=== PATIENT | female | born 1995 | race Caucasian/White ===

== ENCOUNTER 2016-06-27 10:21 | Emergency (ER) | payer OTHER ==
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
[2016-06-27 12:10] VITALS: O2SAT 99
[2016-06-27] MEDS ORDERED: BACIGUENT PACKET TP ONE (12:10)
[2016-06-27] MEDS ORDERED: BACIGUENT PACKET ONE (12:25)
[2016-06-27 12:42] VITALS: BP 126/78; PULSE 88
== END 2016-06-27 12:47 | disposition home or self-care (01) ==
LOC: ED 10:21
DX: S93.502A Unspecified sprain of left great toe, initial encounter (principal); S63.612A Unspecified sprain of right middle finger, initial encounter; V43.52XA Car driver injured in collision with other type car in traffic accident, initial encounter
CPT/HCPCS: 73130; 73630; 99283; A9270-GY

== ENCOUNTER 2016-09-07 13:08 | Emergency (ER) | payer OTHER ==
[2016-09-07] MEDS ORDERED: Adacel Vial IM ONE ×2 (13:38→13:41)
[2016-09-07] MEDS ORDERED: BACIGUENT PACKET TP ONE (13:38)
[2016-09-07] MEDS ORDERED: BACIGUENT PACKET ONE (13:41)
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
[2016-09-07 15:41] VITALS: BP 121/64; PULSE 87
[2016-09-07 15:44] VITALS: O2SAT 96
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
== END 2016-09-07 15:55 | disposition home or self-care (01) ==
LOC: ED 13:08
DX: S80.12XA Contusion of left lower leg, initial encounter (principal); S80.11XA Contusion of right lower leg, initial encounter; S80.812A Abrasion, left lower leg, initial encounter; S80.811A Abrasion, right lower leg, initial encounter; V43.53XA Car driver injured in collision with pick-up truck in traffic accident, initial encounter; H93.12 Tinnitus, left ear
CPT/HCPCS: 73590; 90471; 90715; 99283; A9270-GY

== ENCOUNTER 2023-06-03 05:50 | Day surgery (SDC) | payer BC ==
[2023-06-03] MEDS ORDERED: Lactated Ringers 1,000 ML IV ONE (06:28)
[2023-06-03] MEDS: Lactated Ringers 1,000 ML IV SCH (06:35)
[2023-06-03 06:39] LABS: HCG URINE TEST NEGATIVE (NEGATIVE)
[2023-06-03 06:50] VITALS: RESP 16
[2023-06-03] MEDS ORDERED: DIPRIVAN 200 MG/20 ML IV ONE ×2 (07:46→08:03)
[2023-06-03] MEDS ORDERED: Versed 2 MG/2 ML Injection ONE (07:46)
[2023-06-03 08:56] VITALS: PULSE 73
[2023-06-03 09:06] VITALS: BP 122/75; O2SAT 100
[2023-06-03 09:20] VITALS: TEMP 97.8
--- NOTE | 2023-06-03 11:24 | OP ---
SURGERY DATE/TIME: 06/03/2023 0747 PREOPERATIVE DIAGNOSIS: 1) Abdominal pain. 2) Change in bowel habits. POSTOPERATIVE DIAGNOSES: 1) Mild gastritis. 2) Normal colon. PROCEDURES: 1) Esophagogastroduodenoscopy with cold forceps biopsy gastric antrum. 2) Colonoscopy with cold forceps biopsy random segments of the colon to rule out microscopic colitis. SURGEON: Dr. Chavez. ANESTHESIA: Medications were given by the anesthesia department. HISTORY: The patient is a 27-year-old white female who has been having problems with abdominal pain. She previously had her gallbladder removed two years ago for low ejection fraction and this initially seemed to help. The patient problems since that time with constipation at times and at other times diarrhea. The patient and her mother report no significant stressors other than the fact that she has been recently engaged. The patient was appraised the risks of the procedure including the risk of perforation, phlebitis, untoward reaction to medication, bleeding and missed lesions. The patient verbalized her understanding and desired to have the procedure performed. DESCRIPTION OF PROCEDURE: The patient was given the medications by the anesthesia department. She had continuous pulse oximetry, ECG monitoring and intermittent blood pressure monitoring during the examination. She was placed in the left lateral decubitus position. A bite block was placed. The flexible Olympus gastroscope was used to intubate the oropharynx. A view of the larynx was obtained and was normal. Scope was easily introduced in the esophagus which appeared to be normal throughout its length. The stomach was entered with normal gastric rugal folds and these distended nicely with insufflation of air. The scope was passed along the greater curvature of the stomach to the pylorus which was intubated and found to be essentially normal. The scope is withdrawn towards the stomach. A retroflex view was obtained of the lesser curvature, fundus and cardia regions of the stomach which to be essentially normal. Biopsies were obtained from the gastric antrum to rule out the presence of Helicobacter pylori-type organism and gastritis. The scope was then removed from the patient. Next, a digital rectal examination was performed and revealed normal anal sphincter tone and no masses. The flexible Olympus pediatric colonoscope was used to intubate the rectum. A view of the colon was developed sequentially to the cecum including approximately 20 cm into the terminal ileum. No significant abnormalities were noted. As the scope was withdrawn from the patient, we obtained biopsies from random areas of the colon to rule out underlying possibility of colitis or microscopic colitis. The scope was then removed from the patient who tolerated the procedure well and was sent to OP recovery in good condition. The prep was noted to be good.
== END 2023-06-03 09:18 | disposition home or self-care (01) ==
LOC: SDC 05:50
PROVIDERS: ATTEND Family Medicine
DX: K29.70 Gastritis, unspecified, without bleeding (principal); R10.9 Unspecified abdominal pain; R19.4 Change in bowel habit
CPT/HCPCS: 81025; J2250; J2704

== ENCOUNTER 2024-04-04 21:02 | Emergency (ER) | payer BC ==
[2024-04-04 21:22] VITALS: RESP 18; TEMP 96.9
--- NOTE | 2024-04-04 22:04 | ERPHSYRPT ---
- History of Present Illness Time Seen by Provider: 04/04/24 21:50 Historian: patient Exam Limitations: no limitations Patient Subjective Stated Complaint: "I STARTED VOMITING ON SATURDAY AND THEN DIARRHEA ON SATURDAY. IF TRIED ZOFRAN BUT IT DIDN'T HELP. I CAN'T KEEP ANYTHING DOWN." Triage Nursing Assessment: A&OX3, SKIN PALE, COOL DRY, RESP EVEN UNLABORED, AMBULATED TO ROOM WITHOUT DIFFICULTY Physician History: The patient presents with vomiting and diarrhea. She has been experiencing vomiting and diarrhea since , with symptoms beginning after returning home from work at noon. Initially, she thought it was sinus drainage as she vomited at work. Since then, she has been unable to keep anything down, with the last episode of vomiting occurring around 5 or 6 PM today. No blood is present in her vomit or diarrhea. She describes her abdominal pain as 'kind of sharp' and tender, with the pain sometimes being all over, sometimes down, and sometimes up high. Her eye hurt significantly yesterday, which she associates with the pressure from vomiting. She has not taken her temperature but reports feeling hot and cold intermittently, suggesting possible fever. Timing/Duration: day(s) (3) Activities at Onset: rest Quality: sharpness Abdominal Pain Onset Location: generalized abdomen Pain Radiation: no radiation Severity of Pain-Max: mild Severity of Pain-Current: mild Modifying Factors: Improves With: other (zofran helps when able to keep down) Associated Symptoms: denies symptoms Previous symptoms: no prior history Allergies/Adverse Reactions: propranolol Adverse Reaction (Severe, Verified 06/03/23 06:37) hallucinations Home Medications: Adalimumab [Humira Pen] 40 mg SQ UD 05/31/23 [History] Escitalopram Oxalate 10 mg PO DAILY 05/31/23 [History] Norgestimate-Ethinyl Estradiol [Tri-Estarylla Tablet] 1 each PO DAILY 05/31/23 [History] Pantoprazole 20 mg [Protonix 20MG Tablet] 20 mg PO DAILY 05/31/23 [History] Hx Tetanus, Diphtheria Vaccination/Date Given: Yes Hx Influenza Vaccination/Date Given: No Hx Pneumococcal Vaccination/Date Given: No Immunizations Up to Date: No Travel Risk - International Travel Have you traveled outside of the country in past 3 weeks: No - Emerging Infectious Disease Are you exhibiting symptoms associated with any current EIDs: Yes Symptoms: Diarrhea, Headaches/Body Aches/, Vomitting - Review of Systems All Other Systems: Reviewed and Negative - Past Medical History Pertinent Past Medical History: Yes Neurological History: No Pertinent History ENT History: Glaucoma Cardiac History: Other Respiratory History: No Pertinent History Endocrine Medical History: No Pertinent History Musculoskeletal History: No Pertinent History GI Medical History: No Pertinent History History: No Pertinent History Psycho-Social History: Anxiety Female Reproductive Disorders: No Pertinent History Other Medical History: 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 psoriatic arthritis, RANAUD'S DISEASE - Past Surgical History Past Surgical History: Yes Neuro Surgical History: No Pertinent History Cardiac: Other Gastrointestinal: No Pertinent History Genitourinary: No Pertinent History Musculoskeletal: No Pertinent History Female Surgical History: No Pertinent History Other Surgical History: open heart- age [age]. multiple eye surgeries since . valves in both eyes - Female History Hx Last Menstrual Period: 03/18/24 Hx Now: No - Social History Smoking Status: Never smoker Exposure to second hand smoke: No Drug Use: none Patient Lives Alone: No - Social Determinants of Health Will the patient participate in the screening: Declined to provide - Nursing Vital Signs Nursing Vital Signs: Initial Vital Signs Blood Pressure 123/92 04/04/24 21:09 O2 Sat by Pulse Oximetry 97 04/04/24 21:09 Pain Scale Pain Intensity 2 - Physical Exam General Appearance: no apparent distress Eye Exam: eyes nml inspection Ears, Nose, Throat Exam: normal ENT inspection Neck Exam: normal inspection, supple, full range of motion Respiratory Exam: normal breath sounds, lungs clear, airway intact, No respir atory distress Cardiovascular Exam: regular rate/rhythm, normal heart sounds, capillary refill <2 sec, No edema Gastrointestinal/Abdomen Exam: soft, normal bowel sounds, No tenderness, No distention, No mass, No guarding, No rebound Neurologic Exam: alert, oriented x 3, cooperative Skin Exam: normal color, warm, dry SpO2 Interpretation: normal SpO2: 97 O2 Delivery: Room Air - Course Nursing assessment & vital signs reviewed: Yes Ordered Tests: Active Orders 24 hr Category Date Time Status IV Insertion STAT Care 04/04/24 22:05 Active CBC W DIFF Stat Lab 04/04/24 22:09 Completed CMP Stat Lab 04/04/24 22:09 Completed CULTURE,URINE Stat Lab 04/04/24 23:02 Received HCG QUALITATIVE, SERUM Stat Lab 04/04/24 22:00 Completed LIPASE Stat Lab 04/04/24 22:09 Completed Lactic Acid Stat Lab 04/04/24 22:05 Completed UA W/RFX UR CULTURE Stat Lab 04/04/24 23:02 Completed Medication Summary Discontinued Medications Generic Name Dose Route Start Last Admin Trade Name Nicolás PRN Reason Stop Dose Admin Sodium Chloride 1,000 mls @ 999 mls/hr 04/04/24 22:05 04/04/24 23:30 Sodium Chloride 0.9% 1000 Ml IV 04/04/24 23:05 Infused .Q1H1M STA Infusion Sodium Chloride Confirm 04/04/24 22:10 Sodium Chloride 0.9% 1000 Ml Administered 04/04/24 22:11 Dose 1,000 mls @ ud .ROUTE .STK-MED ONE Potassium Chloride 40 meq 04/04/24 22:31 04/04/24 22:37 Potassium Chloride Tab 10 Meq Tab PO 04/04/24 22:32 40 meq STAT ONE Administration Potassium Chloride Confirm 04/04/24 22:35 Potassium Chloride Tab 10 Meq Tab Administered 04/04/24 22:36 Dose 40 meq .ROUTE .STK-MED ONE Prochlorperazine Edisylate 10 mg 04/04/24 22:05 04/04/24 22:13 Prochlorperazine Edisylate 10 Mg/2 Ml Vial IV 04/04/24 22:06 10 mg STAT ONE Administration Prochlorperazine Edisylate Confirm 04/04/24 22:10 Prochlorperazine Edisylate 10 Mg/2 Ml Vial Administered 04/04/24 22:11 Dose 10 mg .ROUTE .STK-MED ONE Lab/Rad Data: Laboratory Result Diagrams 04/04/24 22:09 04/04/24 22:09 Laboratory Results 04/04/24 04/04/24 04/04/24 Range/Units 23:02 22:09 22:09 WBC 6.4 (3.98-10.04) x10^3/uL RBC 4.55 (3.93-5.22) x10^6/uL Hgb 15.3 (11.2-15.7) g/dL Hct 40.8 (34.1-44.9) % MCV 89.7 (79.4-94.8) fL MCH 33.6 H (25.6-32.2) pg MCHC 37.5 H (32.2-35.5) g/dL RDW 12.4 (11.7-14.4) % Plt Count 335 (182-369) x10^3/uL MPV 10.7 (9.4-12.3) fL Gran % 42.7 (34.0-71.1) % Immature Gran % (Auto) 0.2 (0.001-0.429) % Nucleat RBC Rel Count 0.0 (0.00-0.2) % Eos # (Auto) 0.09 (0.04-0.36) x10^3/uL Immature Gran # (Auto) 0.01 (0.001-0.031) x10^3u/L Absolute Lymphs (auto) 2.77 (1.18-3.74) x10^3/uL Absolute Monos (auto) 0.78 (0.24-0.86) x10^3/uL Absolute Nucleated RBC 0.00 (0.00-0.012) x10^3u/L Lymphocytes % 43.2 (19.3-51.7) % Monocytes % 12.2 (4.7-12.5) % Eosinophils % 1.4 (0.7-5.8) % Basophils % 0.3 (0.1-1.2) % Absolute Granulocytes 2.74 (1.56-6.13) x10^3/uL Basophils # 0.02 (0.01-0.08) x10^3/uL Sodium 140 (135-145) mmol/L Potassium 3.1 L (3.5-5.1) mmol/L Chloride 102 (98-107) mmol/L Carbon Dioxide 27 (22-30) mmol/L Anion Gap 13.4 (5-15) MEQ/L BUN 11 (7-17) mg/dL Creatinine 0.80 (0.52-1.04) mg/dL Estimated GFR 103.5 ML/MIN Glucose 105 (74-106) mg/dL Lactic Acid (0.4-2.0) Calcium 9.3 (8.4-10.2) mg/dL Total Bilirubin 0.40 (0.2-1.3) mg/dL AST 63 H (14-36) U/L ALT 56 H (0-35) U/L Alkaline Phosphatase 46 (38-126) U/L Serum Total Protein 7.8 (6.3-8.2) g/dL Albumin 4.6 (3.5-5.0) g/dL Lipase 134 (23-300) U/L Serum HCG, Qual (NEGATIVE) Urine Color Yellow (Yellow) Urine Appearance Clear (Clear) Urine pH 6.5 (4.6-8.0) Ur Specific [place] 1.025 (1.005-1.030) Urine Protein 30 (Negative) Urine Glucose (UA) Negative (Negative) mg/dL Urine Ketones 80 A (Negative) Urine Blood Trace (Negative) Urine Nitrite Negative (Negative) Urine Bilirubin Negative (Negative) Urine Urobilinogen 1.0 A (0.2) mg/dL Ur Leukocyte Esterase Small A (Negative) U Hyaline Cast (Auto) 3-5 A (0-2) /LPF Urine Microscopic RBC 6-10 A (0-5) /HPF Urine Microscopic WBC 11-20 A (0-5) /HPF Ur Epithelial Cells Rare (None Seen) /HPF Calcium Oxalate Crystal 3-5 A (None Seen) /HPF Urine Bacteria None Seen (None Seen) /HPF Urine Culture Reflexed YES (NO) 04/04/24 04/04/24 Range/Units 22:05 22:00 WBC (3.98-10.04) x10^3/uL RBC (3.93-5.22) x10^6/uL Hgb (11.2-15.7) g/dL Hct (34.1-44.9) % MCV (79.4-94.8) fL MCH (25.6-32.2) pg MCHC (32.2-35.5) g/dL RDW (11.7-14.4) % Plt Count (182-369) x10^3/uL MPV (9.4-12.3) fL Gran % (34.0-71.1) % Immature Gran % (Auto) (0.001-0.429) % Nucleat RBC Rel Count (0.00-0.2) % Eos # (Auto) (0.04-0.36) x10^3/uL Immature Gran # (Auto) (0.001-0.031) x10^3u/L Absolute Lymphs (auto) (1.18-3.74) x10^3/uL Absolute Monos (auto) (0.24-0.86) x10^3/uL Absolute Nucleated RBC (0.00-0.012) x10^3u/L Lymphocytes % (19.3-51.7) % Monocytes % (4.7-12.5) % Eosinophils % (0.7-5.8) % Basophils % (0.1-1.2) % Absolute Granulocytes (1.56-6.13) x10^3/uL Basophils # (0.01-0.08) x10^3/uL Sodium (135-145) mmol/L Potassium (3.5-5.1) mmol/L Chloride (98-107) mmol/L Carbon Dioxide (22-30) mmol/L Anion Gap (5-15) MEQ/L BUN (7-17) mg/dL Creatinine (0.52-1.04) mg/dL Estimated GFR ML/MIN Glucose (74-106) mg/dL Lactic Acid 1.7 (0.4-2.0) Calcium (8.4-10.2) mg/dL Total Bilirubin (0.2-1.3) mg/dL AST (14-36) U/L ALT (0-35) U/L Alkaline Phosphatase (38-126) U/L Serum Total Protein (6.3-8.2) g/dL Albumin (3.5-5.0) g/dL Lipase (23-300) U/L Serum HCG, Qual NEGATIVE (NEGATIVE) Urine Color (Yellow) Urine Appearance (Clear) Urine pH (4.6-8.0) Ur Specific [place] (1.005-1.030) Urine Protein (Negative) Urine Glucose (UA) (Negative) mg/dL Urine Ketones (Negative) Urine Blood (Negative) Urine Nitrite (Negative) Urine Bilirubin (Negative) Urine Urobilinogen (0.2) mg/dL Ur Leukocyte Esterase (Negative) U Hyaline Cast (Auto) (0-2) /LPF Urine Microscopic RBC (0-5) /HPF Urine Microscopic WBC (0-5) /HPF Ur Epithelial Cells (None Seen) /HPF Calcium Oxalate Crystal (None Seen) /HPF Urine Bacteria (None Seen) /HPF Urine Culture Reflexed (NO) - Progress Progress: improved Progress Note: 04/04/24 22:16 The cause of the patients symptoms likely Noro virus, but the patient is overall well appearing and is suspected to have a transient course of illness. Given History and Exam there does not appear to be an emergent cause of the symptoms such as small bowel obstruction, coronary syndrome, bowel ischemia, DKA, pancreatitis, appendicitis, other acute abdomen or other emergent problem. CBC, CMP, Lipase, UA ordered NS bolus given Compazene given for N/V Reassessment: After treatment, the patient is feeling much better, no abd pain, no UTI sxs will defer tx based on UA, f/u liver enzymes, ODT Zofran sent to pharmacy. Disposition: Discharge home with prompt primary care physician follow up in the next 48 hours. Strict return precautions discussed. Counseled pt/family regarding: lab results, diagnosis, need for follow-up Medical Desision Making - Diagnostic Testing Diagnostic test were ordered, analyzed, and reviewed by me: Yes Radiological Interpretation: Interpreted by me - Risk of complications The pt has a mod risk of morbidity or mortality based on: Need for prescription drug management - Departure Departure Disposition: Home Clinical Impression: Transaminitis, Hypokalemia, Viral gastroenteritis Condition: Good Critical Care Time: No Referrals: [facility] [Primary Care Provider] - Follow up/PCP as directed Instructions: Viral gastroenteritis in adults Prescriptions: Ondansetron [Ondansetron Odt] 8 mg PO TID PRN 7 Days #21 tablet PRN Reason: Nausea/Vomiting
[2024-04-04] MEDS ORDERED: Compazine 10 MG/2 ML ONE (22:10)
[2024-04-04] MEDS ORDERED: Sodium Chloride 0.9% 1000 ML 1,000 ML ONE (22:10)
[2024-04-04 22:12] LABS: Absolute Neutrophil Ct (ANC) 2.74 x10^3/uL (1.56-6.13); BASOPHIL % 0.3 % (0.1-1.2); Basophil (Absolute #) 0.02 x10^3/uL (0.01-0.08); Eosinophil % 1.4 % (0.7-5.8); Eosinophil (Absolute #) 0.09 x10^3/uL (0.04-0.36); Hematocrit 40.8 % (34.1-44.9); Hemoglobin 15.3 g/dL (11.2-15.7); IMMATURE GRAN # 0.01 x10^3u/L (0.001-0.031); IMMATURE GRAN % 0.2 % (0.001-0.429); Lymphocyte (Absolute #) 2.77 x10^3/uL (1.18-3.74); Lymphocytes % 43.2 % (19.3-51.7); Mean Cell Volume 89.7 fL (79.4-94.8); Mean Corpuscular Hemoglobin 33.6 pg (25.6-32.2); Mean Corpuscular Hgb Concent. 37.5 g/dL (32.2-35.5); Mean Platelet Volume 10.7 fL (9.4-12.3); Monocyte (Absolute #) 0.78 x10^3/uL (0.24-0.86); Monocytes % 12.2 % (4.7-12.5); Neutrophil % 42.7 % (34.0-71.1); Platelet Count 335 x10^3/uL (182-369); Red Blood Count 4.55 x10^6/uL (3.93-5.22); Red Cell Distribution Width 12.4 % (11.7-14.4); White Blood Count 6.4 x10^3/uL (3.98-10.04)
[2024-04-04] MEDS: Sodium Chloride 0.9% 1000 ML 1,000 ML IV STA (22:13)
[2024-04-04] MEDS: Compazine 10 MG/2 ML IV ONE (22:13)
[2024-04-04 22:18] LABS: HCG SERUM TEST NEGATIVE (NEGATIVE)
[2024-04-04 22:18] LABS: ALBUMIN 4.6 g/dL (3.5-5.0); ANION GAP 13.4 MEQ/L (5-15); BILIRUBIN,TOTAL 0.4 mg/dL (0.2-1.3); Calcium 9.3 mg/dL (8.4-10.2); Creatinine 1 0.8 mg/dL (0.52-1.04); EST GLOMERULAR FILTRATION RATE 103.5 ML/MIN; Potassium 3.1 mmol/L (3.5-5.1); Total Protein 7.8 g/dL (6.3-8.2)
[2024-04-04] MEDS ORDERED: Klor Con ONE (22:35)
[2024-04-04] MEDS: Klor Con PO ONE (22:37)
[2024-04-04 23:02] VITALS: BP 136/82; PULSE 81
[2024-04-04 23:11] LABS: Appearance Clear (Clear); Bacteria None Seen /HPF (None Seen); Bilirubin Negative (Negative); Blood Trace (Negative); Epithelial Cells Rare /HPF (None Seen); Glucose, Urine Negative (Negative); Ketones 80 (Negative); Leukocyte Esterase Small (Negative); Nitrite Negative (Negative); Ph 6.5 (4.6-8.0); Protein,Urine Dip 30 (Negative); Specific Gravity 1.025 (1.005-1.030)
[2024-04-04 23:36] VITALS: O2SAT 97
== END 2024-04-04 23:51 | disposition home or self-care (01) ==
LOC: ED 21:02
DX: A08.4 Viral intestinal infection, unspecified (principal); R74.01 Elevation of levels of liver transaminase levels; E87.6 Hypokalemia; R11.2 Nausea with vomiting, unspecified; R10.84 Generalized abdominal pain; Z79.899 Other long term (current) drug therapy
CPT/HCPCS: 36415; 80053; 81001; 83605; 83690; 84703; 85025; 87086; 96374; 99284; A9270-GY